=== PATIENT | female | born 1960 | race Caucasian/White ===

== ENCOUNTER 2020-02-03 02:28 | Outpatient (CLI) | payer MEDICAID | END 2020-02-03 13:00 | disposition home or self-care (01) | LOC: D.MAMMO 02:28 | PROVIDERS: ATTEND Clinical Nurse Specialist Family Health | DX: R92.8 Other abnormal and inconclusive findings on diagnostic imaging of breast (principal) ==

== ENCOUNTER → 2020-03-24 09:02 | Outpatient (CLI) | payer MEDICAID | END | disposition home or self-care (01) | LOC: D.US 09:00 | PROVIDERS: ATTEND Clinical Nurse Specialist Family Health | DX: R92.8 Other abnormal and inconclusive findings on diagnostic imaging of breast (principal) ==